=== PATIENT | male | born 1995 | race Caucasian/White ===

== ENCOUNTER 2020-03-19 13:28 | Emergency (ER) | payer SELFPAY ==
[2020-03-19] MEDS ORDERED: LIDOCAINE 1%/EPINEPHRINE INJ 20 ML VIAL INJ ONE (14:00)
--- NOTE | 2020-03-19 14:02 | ER Document Report ---
ED General <JUAN PABLO LEVIN - Last Filed: 03/20/20 11:14> - General Mode of Arrival: Medic Information source: Patient, Emergency Med Personnel TRAVEL OUTSIDE OF THE [place] IN LAST 30 DAYS: No - HPI Onset: This morning Quality of pain: Achy Severity: Moderate Pain Level: 2 Associated symptoms: None Exacerbated by: Movement Relieved by: Remaining still Similar symptoms previously: No Recently seen / treated by doctor: No <MARCO DOTSON JR - Last Filed: 03/20/20 18:03> - General Stated Complaint: LEFT WRIST LACERATION Time Seen by Provider: 03/19/20 13:59 Notes: 24-year-old black male arrives with some depression and also has a history of being a beer drinker heavy use and lacerated his left wrist. He used a icebox man this time and had heavy bleeding at his house. EMS was called and took patient to hallway #3. He was sutured there by myself with seven 3-0 Ethilon and 6 shruthi. Patient tolerated this procedure well. He had lidocaine with epi injected subcutaneous for local anesthesia. He is able to flex his fingers without difficulty. He advises "he may go back home and re-cut himself because the wound is so well repared." On a depression scale he reports he is moderately to heavily depressed. He is depressed because of some bills and financial problems. He has never been here before in this hospital. Patient did request a nicotine patch for his smoking these 1 pack/day. He reports he was diagnosed with depression over 2 years ago and was supposed to be on medica tion for his depression but has not been taking any. (MARCO DOTSON JR) - Related Data Allergies/Adverse Reactions: No Known Allergies Allergy (Verified 03/20/20 05:31) Past Medical History - General Information source: Patient - Social History Smoking Status: Current Every Day Smoker Cigarette use (# per day): Yes Chew tobacco use (# tins/day): No Smoking Education Provided: Yes Frequency of alcohol use: Heavy Drug Abuse: Other - pt denies Lives with: Family Family History: Reviewed & Not Pertinent Patient has suicidal ideation: Yes Patient has homicidal ideation: No <MARCO DOTSON JR - Last Filed: 03/20/20 18:03> Review of Systems - Review of Systems Constitutional: No symptoms reported EENT: No symptoms reported Cardiovascular: No symptoms reported Respiratory: No symptoms reported Gastrointestinal: No symptoms reported Genitourinary: No symptoms reported Male Genitourinary: No symptoms reported Musculoskeletal: No symptoms reported Skin: See HPI, Other - lacerations to left wrist Hematologic/Lymphatic: No symptoms reported Neurological/Psychological: No symptoms reported, See HPI, Depression <MARCO DOTSON JR - Last Filed: 03/20/20 18:03> Physical Exam - Vital signs Interpretation: Hypertensive - HEENT Head: Normocephalic, Atraumatic Eyes: Normal Pupils: PERRL Nasal: Normal Mouth/Lips: Normal Mucous membranes: Normal Pharynx: Normal Neck: Normal - Respiratory Respiratory status: No respiratory distress Chest status: Nontender Breath sounds: Normal Chest palpation: Normal - Cardiovascular Rhythm: Regular Heart sounds: Normal auscultation Murmur: No - Abdominal Inspection: Normal Distension: No distension Bowel sounds: Normal Tenderness: Nontender Organomegaly: No organomegaly - Rectal Prostate: Other - deferred - Genitourinary Scrotum: Other - deferred - Back Back: Normal - Extremities General upper extremity: Tender, Other - with left wrist laceration x 2 ; smaller shorted was 1.5 cm length and larger lac was 9 cm length x 2.5 cm width - Neurological Neuro grossly intact: Yes Cognition: Normal Orientation: AAOx4 [place] Coma Scale Eye Opening: Spontaneous [place] Coma Scale Verbal: Oriented [place] Coma Scale Motor: Obeys Commands Manjeet Coma Scale Total: 15 Speech: Normal Motor strength normal: LUE, RUE, LLE, RLE Sensory: Normal - Psychological Associated symptoms: Depressed - Skin Skin Temperature: Warm Skin Moisture: Dry Skin irregularity: Laceration - as per exam and hpi <TRAMAINEHUONGMARCO Escobar JR - Last Filed: 03/20/20 18:03> - Vital signs Vitals: Temp Pulse Resp BP Pulse Ox 98.5 F 90 18 157/103 H 95 03/19/20 13:28 03/19/20 13:28 03/19/20 13:28 03/19/20 13:28 03/19/20 13:28 Course - Laboratory Result Diagrams: 03/19/20 13:35 03/19/20 13:35 <JUAN PABLO LEVIN - Last Filed: 03/20/20 11:14> - Laboratory Result Diagrams: 03/19/20 13:35 03/19/20 13:35 <NILAMARCO Escobar - Last Filed: 03/20/20 18:03> - Re-evaluation Re-evalutation: 03/20/20 09:16 No report was received on the patient I did review the patient's chart and lab work. Positive for amphetamines positive for alcohol, awaiting psychiatric evaluation 03/20/20 11:14 I spoke with Sienna from the psychiatric team. She has evaluated the patient. I did evaluate the wound, well approximated with sutures and shruthi, slightly swollen but not erythematous weeping serous fluid. Will place patient on a course of oral Keflex. (JUAN PABLO LEVIN) - Vital Signs Vital signs: Temp Pulse Resp BP Pulse Ox 98.0 F 79 18 164/124 H 100 03/20/20 10:26 03/20/20 10:26 03/20/20 10:26 03/20/20 10:27 03/20/20 10:26 - Laboratory Laboratory results interpreted by me: 03/19/20 03/19/20 03/19/20 13:35 13:35 22:30 Lymph % (Auto) 53.3 H Seg Neutrophils % 40.0 L Urine Protein 30 H Urine Blood MODERATE H Salicylates < 1.0 L Acetaminophen < 10 L Procedures - Laceration/Wound Repair Left Volar Wrist Time completed: 14:45 Wound length (cm): 9 Wound's Depth, Shape: Linear Laceration pre-procedure: Shur-Clens applied Volume Anesthetic (mLs): 10 Wound explored: Foreign body removed - large clots 2 cm l x 1 cm w Wound Debrided: Minimal Wound Repaired With: Sutures, Shruthi Suture Size/Type: 3:0, Ethilon Number of Sutures: 6 - with 6 shruthi placed Layer Closure?: No Post-procedure wound care: Sterile dressing applied Post-procedure NV exam normal: Yes - patient able to flex all fingers and extend all fingers; sensation intact Complications: No <NILAMARCO Luz LOGAN - Last Filed: 03/20/20 18:03> Critical Care Note <NILAMARCO Luz LOGAN - Last Filed: 03/20/20 18:03> - Critical Care Note Comments: this case was discussed with [facility] at 1900; will be evaluated tomorrow by psychiatric ; I advised patient if any flexion problems or sensation problems arise that he should alert nursing staff immediately and follow with orthopedics / and PMD. re-evaluation for HTN will be done in AM as well (MARCO DOTSON JR) Discharge <JUAN PABLO LEVIN - Last Filed: 03/20/20 11:14> <MARCO DOTSON JR - Last Filed: 03/20/20 18:03> - Discharge Clinical Impression: Suicidal behavior with attempted self-injury, Hypertension Laceration of wrist, left Qualifiers: Encounter type: initial encounter Qualified Code(s): S61.512A - Laceration without foreign body of left wrist, initial encounter Alcohol intoxication Qualifiers: Complication of substance-induced condition: uncomplicated Qualified Code(s): F10.920 - Alcohol use, unspecified with intoxication, uncomplicated Condition: Good Disposition: PSYCH HOSP/UNIT
[2020-03-19 14:11] LABS: ABSOLUTE BASOPHILS # (AUTO) 0.1 10^3/uL (0.0-0.2); ABSOLUTE LYMPHOCYTES (AUTO) 2.7 10^3/uL (0.5-4.7); ABSOLUTE MONOCYTES (AUTO) 0.2 10^3/uL (0.1-1.4); ABSOLUTE NEUT (AUTO) 2.1 10^3/uL (1.7-8.2); BASOPHILS % (AUTO) 1.4 % (0-2); EOSINOPHILS % (AUTO) 0.8 % (0-6); HEMATOCRIT 48.6 % (37.9-51.0); LYMPHOCYTES % (AUTO) 53.3 % (13-45); MEAN CORPUSCULAR HEMOGLOBIN 32.5 pg (27.0-33.4); MEAN CORPUSCULAR HGB CONC 34.9 g/dL (32.0-36.0); MEAN CORPUSCULAR VOLUME 93 fl (80-97); MONOCYTES % (AUTO) 4.5 % (3-13); PLATELET COUNT 297 10^3/uL (150-450); RED BLOOD COUNT 5.21 10^6/uL (4.35-5.55); TOTAL CELLS COUNTED % (AUTO) 100 %; WHITE BLOOD COUNT 5.1 10^3/uL (4.0-10.5)
[2020-03-19 14:21] LABS: ALBUMIN 4.8 g/dL (3.5-5.0); ALCOHOL 199 mg/dL (NONE DETECTED); ALKALINE PHOSPHATASE 76 U/L (38-126); ANION GAP 13 (5-19); ASPARTATE AMINO TRANSFERASE 35 U/L (17-59); BILIRUBIN,DIRECT 0.3 mg/dL (0.0-0.4); BILIRUBIN,TOTAL 0.8 mg/dL (0.2-1.3); BLOOD UREA NITROGEN 7 mg/dL (7-20); CALCIUM 9.5 mg/dL (8.4-10.2); CARBON DIOXIDE 24 mmol/L (22-30); CHLORIDE 104 mmol/L (98-107); GLUCOSE 99 mg/dL (75-110); POTASSIUM 4.7 mmol/L (3.6-5.0); TOTAL PROTEIN 8.2 g/dL (6.3-8.2)
[2020-03-19 14:23] LABS: ACETAMINOPHEN < 10 ug/mL (10-30); SALICYLATE < 1.0 mg/dL (2.0-20.0)
[2020-03-19] MEDS ORDERED: LORAZEPAM INJ 2 MG/1 ML VIAL IM ONE (14:39)
[2020-03-19] MEDS ORDERED: HALOPERIDOL LACTATE INJ 5 MG/1 ML VIAL IM ONE (14:40)
--- NOTE | 2020-03-19 19:27 | EKG REPORT ---
SEVERITY:- ABNORMAL ECG - SINUS RHYTHM LEFT VENTRICULAR HYPERTROPHY ST ELEV, PROBABLE NORMAL EARLY REPOL PATTERN : Confirmed by: Trang Coffman MD 19-Mar-2020 19:26:51
[2020-03-19] MEDS ORDERED: NICOTINE 14 MG/24 HR PATCH.TD24 TD ONE (21:40)
[2020-03-19] MEDS ORDERED: ACETAMINOPHEN 325 MG TABLET PO ONE (21:40)
[2020-03-19 23:14] LABS: APPEARANCE,URINE CLEAR; BILIRUBIN,URINE NEGATIVE (NEGATIVE); COLOR,URINE YELLOW; GLUCOSE, URINE NEGATIVE (NEGATIVE); KETONES,URINE NEGATIVE (NEGATIVE); LEUKOCYTE ESTERASE,URINE NEGATIVE (NEGATIVE); NITRITE,URINE NEGATIVE (NEGATIVE); PROTEIN,URINE 30 mg/dL (NEGATIVE); URINE SPECIFIC GRAVITY 1.016; UROBILINOGEN,URINE NEGATIVE mg/dL (<2.0)
[2020-03-19 23:29] LABS: URINE AMPHETAMINES SCREEN UNCONFIRMED POSITIVE; URINE BARBITURATES SCREEN NEGATIVE; URINE BENZODIAZEPINES SCREEN NEGATIVE; URINE COCAINE SCREEN NEGATIVE; URINE MARIJUANA (THC) SCREEN UNCONFIRMED POSITIVE; URINE METHADONE SCREEN NEGATIVE; URINE PHENCYCLIDINE SCREEN NEGATIVE
--- NOTE | 2020-03-20 10:04 | PSYCHOLOGICAL NOTE ---
Psych Note - Psych Note Date seen by psych provider: 03/19/20 Time seen by psych provider: 17:41 - Spoke to Attending ED Physician just after he sutured patient and obtained collateral. Attempted evaluation with patient at 1741. Psych Note: Patient is a 24 year old male who presented to the Emergency Department this afternoon via EMS, petitioned for Involuntary Commitment by [facility] for suicidal ideation via cutting wrist yesterday and today. Attending ED Physician identified patient was tremaine he missed a main artery/vein or else he would have needed the Operation Room. He stated patient used a box finisher. He reported he had to utilize stitches and shruthi. He stated patient told him he has been depressed for awhile, is supposed to be on medication but does not take it, and self medicates with alcohol. Physician noted patient commented on a job well done with stitches/shruthi and said "now I can go home and do it again." Patient's Serum Alcohol Level was 199 upon arrival to the Emergency Department. He had not provided urine yet. Patient was administered Haldol 5MG (at 1520) and Ativan 2MG (at 1521) both intramuscular. At 1741 when this clinician attempted assessment patient was sleeping, easy to arouse as evidenced by his eyes opening briefly, but unable to stay awake heavy eyelids, quickly back to sleep). Clinical Presentation: Alcohol Intoxication with Use Disorder Severe Suicidal ideation with attempt via cutting wrist with box finisher which required stitches/shruthi Impression/Plan: Recommendation to maintain IVC. Patient is under the influence of alcohol, he cut wrist yesterday and he cut wrist today which required stitches/sutures. He reported to the ED Physician he's been depressed for awhile, supposed to be on medication but doesn't take it, self medicates with alcohol and commented on doing it again when he gets home. Consulted with Dr. Rangel regarding the management and care of patient. ED Physician in agreement with recommendations.
[2020-03-20] MEDS ORDERED: NICOTINE 21 MG/24 HR PATCH.TD24 TD ONE (10:49)
[2020-03-20] MEDS ORDERED: CEPHALEXIN 500 MG CAPSULE PO ONE (11:14)
[2020-03-20 12:48] VITALS: BP 164/124
--- NOTE | 2020-03-21 20:51 | PSYCHOLOGICAL NOTE ---
Psych Note - Psych Note Date seen by psych provider: 03/20/20 Time seen by psych provider: 10:59 - Contact with [facility] at 1059 regarding referral faxed last evening. Observed patient around 1115. Psych Note: Patient is a 24 year old male in the ED on FULL IVC, petitioned by [facility] for suicidal ideation, cut wrist yesterday, cut wrist today with card boxer which required stitches and shruthi, continued to endorse suicidal ideation saying what a good job the doctor did stitching him up and how he can go home to do it again, depression, supposed to be on medication but does not take them, self medicates with alcohol and had alcohol intoxication. A referral was faxed to [facility] last evening. At 1059 called [facility] and spoke to Katharine. She noted interaction with [facility] medical staff last evening and [facility] said they were holding patient overnight to evaluate wound and need for Intravenous antibiotics. Explained would check in on wound care treatment and plan as well as send updated information regarding referral. Faxed updated information. At 1232 Katharine called from [facility] patient accepted. Will move forward with that placement. Observed patient up, walking, and interacting appropriately with staff. he was no longer sedated from alcohol intoxication and medication administration (Ativan, Haldol yesterday). Clinical Presentation: Alcohol Intoxication with Use Disorder Severe Suicidal ideation with attempt via cutting wrist with card boxer which required stitches/shruthi Impression/Plan: Maintain FULL IVC and move forward with acceptance to [facility]. Consulted with Dr Rangel regarding the management and care of patient. ED Ted singletary in agreement with recommendations.
== END 2020-03-20 13:23 ==
LOC: ER 13:28
DX: S61.512A Laceration without foreign body of left wrist, initial encounter (principal); X78.8XXA Intentional self-harm by other sharp object, initial encounter; Y92.009 Unspecified place in unspecified non-institutional (private) residence as the place of occurrence of the external cause; I10 Essential (primary) hypertension; F10.120 Alcohol abuse with intoxication, uncomplicated; Y90.6 Blood alcohol level of 120-199 mg/100 ml; F32.9 Major depressive disorder, single episode, unspecified; Z91.14 Patient's other noncompliance with medication regimen; F17.210 Nicotine dependence, cigarettes, uncomplicated
CPT/HCPCS: 93005; 99285; 96372; 36415; 80307 ×4; 85025; 80053; 81001; 93010; 12004; J1630; J3490; J2060